=== PATIENT | female | born 1965 | race Two or more races ===

== ENCOUNTER 2024-06-26 09:26 | Day surgery (SDC) | payer MEDICAID ==
[2024-06-24 10:08] LABS: Basophils # (auto) 0 10 ^3/uL (0-0.2); Basophils % (auto) 0.7 % (0.0-2.0); Eosinophils # (auto) 0.1 10 ^3/uL (0-0.8); Hematocrit 41.5 % (36.0-46.0); Lymphocytes # (auto) 1.7 10 ^3/uL (0.4-5.4); Lymphocytes % (auto) 43.1 % (10.0-50.0); Mean Corpuscular Hemoglobin 32.2 pg (28.0-32.0); Mean Corpuscular Hgb Conc. 33.8 g/dL (32.0-36.0); Mean Corpuscular Volume 95.4 fL (80.0-100.0); Monocytes # (auto) 0.3 10 ^3/uL (0-1.3); Monocytes % (auto) 7.6 % (0.0-12.0); Neutrophils # (auto) 1.9 10 ^3/uL (1.6-8.6); Neutrophils % (auto) 46.6 % (37.0-80.0); Platelet Count (auto) 246 10^3/uL (140-450); Red Blood Cells 4.35 10^6/uL (4.0-5.20); Red Cell Distribution Width 13.7 % (11.8-14.3)
[2024-06-24 10:20] LABS: INR 1.04 (0.9-1.15); Partial Thromboplastin Time 26.6 SEC (24.5-34.5)
[2024-06-24 10:37] LABS: Alanine Aminotransferase 24 U/L (7-40); Alkaline Phosphatase 80 U/L (46-116); Anion Gap 8 (5-15); Aspartate Aminotransferase 23 U/L (13-40); Bilirubin, Total 0.5 mg/dL (0.2-1.0); Blood Urea Nitrogen 13 mg/dL (9-23); Calcium 9.9 mg/dL (8.7-10.4); Carbon Dioxide 27 mmol/L (20-31); Chloride 106 mmol/L (98-107); Glucose 79 mg/dL (74-106); Potassium 4.4 mmol/L (3.5-5.1); Sodium 141 mmol/L (136-145); Total Protein 7.4 g/dL (5.7-8.2)
[2024-06-24 10:58] LABS: Albumin 4.9 g/dL (3.2-4.8)
[~2024-06-26] VITALS: Ht 157.5 cm; Wt 71.2 kg
[2024-06-26] MEDS ORDERED: SODIUM CHLORIDE LOCK 10 ML ONE (10:55)
[2024-06-26 11:05] VITALS: PULSE 59; RESP 16; O2SAT 100
[2024-06-26] MEDS: fentaNYL CITRATE 100 MCG/2 ML VL ONE (11:06)
[2024-06-26] MEDS: MIDAZOLAM HCL 5 MG/ML-1ML VIAL ONE (11:06)
[2024-06-26 11:24] VITALS: TEMP 97.8
--- NOTE | 2024-06-26 11:28 | DVHNC2 ---
Procedure - DATE OF PROCEDURE: June 26, 2024 SURGEON: YASH GILMORE MD REFERRING PROVIDER: Dr. Genevieve CORDOVA PROCEDURE PERFORMED: 1. Colonoscopy with cold biopsy with moderate sedation PRE-PROCEDURE DIAGNOSIS: 1. Abdominal pain and diarrhea POSTPROCEDURE DIAGNOSIS: 1. Small internal external hemorrhoids otherwise normal colonoscopy INDICATIONS FOR PROCEDURE: The patient is a 59-year-old female with abdominal pain and diarrhea persists for a pressure colonoscopy MEDICATIONS USED: 4 mg Versed IV and 75 mcg of fentanyl IV DETAILS OF THE PROCEDURE: Informed consent was obtained after risks, benefits, and alternatives, were discussed at length with the patient. The patient gave consent to the procedure as well as the medication used for sedation. The pat ient was placed in the left lateral decubitus position. Digital rectal exam showed internal hemorrhoids. An Olympus variable torsion pediatric colonoscope was inserted into the rectum and advanced to the cecum. The cecum was identified by the ileocecal valve and the appendiceal orifice. The terminal ileum was intubated and normal in appearance. Cold biopsies were taken given t he patient's symptoms. The scope was then withdrawn. The prep was good with little amounts of liquid stool. There were no large polyps, masses, strictures, or arteriovenous malformations. Random cold biopsies were taken to rule out microscopic colitis. More than 7 minutes withdrawal time was noted. Retroflexion showed internal hemorrhoids. The patient tolerated the procedure well [place] BOWEL PREP SCORE: 9 COLONOSCOPY START TIME: 1109 CECUM TIME: 1111 COLONOSCOPY END TIME: 1118 IMPRESSION: 1. Normal colon and ileum, cold biopsies taken to rule out ileitis as well microscopic colitis. 2. Small internal external hemorrhoids RECOMMENDATIONS: 1. Follow up with procedure results 2. Repeat colonoscopy in 7-10 years unless otherwise indicated 3. High-fiber diet 4. Consider IBS, exocrine pancreatic insufficiency, versus other is cause of the patient's symptoms 5. Follow up in GI clinic I WOULD LIKE TO THANK DR. ROMO FOR THIS REFERRAL YASH GILMORE MD Jun 26, 2024 11:28
[2024-06-26 11:50] VITALS: BP 109/62; PULSE 51; RESP 14; O2SAT 96
== END 2024-06-26 12:15 | disposition home or self-care (01) ==
LOC: GI 09:26
PROVIDERS: ATTEND Specialist
DX: R19.7 Diarrhea, unspecified (principal); K64.8 Other hemorrhoids; K58.2 Mixed irritable bowel syndrome; K64.4 Residual hemorrhoidal skin tags; R74.01 Elevation of levels of liver transaminase levels; R63.4 Abnormal weight loss; Z90.710 Acquired absence of both cervix and uterus; Z90.49 Acquired absence of other specified parts of digestive tract; R10.13 Epigastric pain; Z68.29 Body mass index [BMI] 29.0-29.9, adult
CPT/HCPCS: 36415; 45380; 80053; 85025; 85610; 85730; 88305; J2250; J3010; 99152

== ENCOUNTER 2024-10-02 07:18 | Day surgery (SDC) | payer MEDICAID ==
[2024-09-30 15:20] LABS: Basophils # (auto) 0 10 ^3/uL (0-0.2); Eosinophils # (auto) 0.1 10 ^3/uL (0-0.8); Hematocrit 39.4 % (36.0-46.0); Hemoglobin 13.6 g/dL (12.2-16.2); Lymphocytes # (auto) 2.3 10 ^3/uL (0.4-5.4); Lymphocytes % (auto) 44.7 % (10.0-50.0); Mean Corpuscular Hemoglobin 32.9 pg (28.0-32.0); Mean Corpuscular Hgb Conc. 34.5 g/dL (32.0-36.0); Mean Corpuscular Volume 95.6 fL (80.0-100.0); Monocytes # (auto) 0.3 10 ^3/uL (0-1.3); Monocytes % (auto) 5.1 % (0.0-12.0); Neutrophils # (auto) 2.4 10 ^3/uL (1.6-8.6); Neutrophils % (auto) 47.2 % (37.0-80.0); Platelet Count (auto) 256 10^3/uL (140-450); Red Blood Cells 4.12 10^6/uL (4.0-5.20); Red Cell Distribution Width 13.9 % (11.8-14.3); White Blood Cell 5.1 10^3/uL (4.4-10.8)
[2024-09-30 15:38] LABS: INR 1.01 (0.9-1.15); Partial Thromboplastin Time 25.3 SEC (24.5-34.5); Prothrombin Time 10.7 sec (9.3-11.8)
[2024-09-30 15:41] LABS: Alanine Aminotransferase 21 U/L (7-40); Albumin 4.6 g/dL (3.2-4.8); Alkaline Phosphatase 72 U/L (46-116); Anion Gap 7 (5-15); Aspartate Aminotransferase 20 U/L (13-40); BUN/Creatinine Ratio 17.1 (10.0-20.0); Blood Urea Nitrogen 14 mg/dL (9-23); Carbon Dioxide 28 mmol/L (20-31); Chloride 106 mmol/L (98-107); Glucose 91 mg/dL (74-106); Sodium 141 mmol/L (136-145); Total Protein 7.1 g/dL (5.7-8.2)
[2024-09-30 15:42] LABS: Bilirubin, Total 0.3 mg/dL (0.2-1.0)
[~2024-10-02] VITALS: Ht 160 cm; Wt 69.9 kg
[~2024-10-02 07:18] MED LIST: OMEP20TA PO
[2024-10-02] MEDS: MIDAZOLAM HCL 2MG/2ML 2ml VIAL (1mg/ml) ONE (09:03)
[2024-10-02] MEDS: fentaNYL CITRATE 100 MCG/2 ML VL ONE (09:03)
--- NOTE | 2024-10-02 09:12 | DVHNC2 ---
Procedure - PROCEDURE DATE: 10/02/2024 PROCEDURE PERFORMED BY: AYSH GILMORE MD REFERRING PROVIDER: JANIE ROMO MD PROCEDURE PERFORMED: 1. ESOPHAGOGASTRODUODENOSCOPY WITH MODERATE SEDATION 2. ESOPHAGOGASTRODUODENOSCOPY WITH BIOPSY PRE-PROCEDURE DIAGNOSIS: 1. GERD REFRACTORY TO TREATMENT 2. EPIGASTRIC ABDOMINAL PAIN POSTPROCEDURE DIAGNOSIS: 1. MILD EROSIVE ESOPHAGITIS 2. MILD EROSIVE GASTRITIS INDICATION FOR PROCEDURE: THE PATIENT IS A 59-YEAR-OLD FEMALE WHO PRESENTS FOR OUTPATIENT ENDOSCOPY FOR ABDOMINAL PAIN AND GERD REFRACTORY TO TREATMENT MEDICATIONS USED: 4MG OF VERSED AND 50 MCG OF FENTANYL IV WAS GIVEN IN INCREMENTAL DOSES DETAILS OF THE PROCEDURE: INFORMED CONSENT WAS OBTAINED AFTER RISKS BENEFITS AND ALTERNATIVES WERE DISCUSSED AT LENGTH WITH THE PATIENT. THE PATIENT GAVE CONSENT TO THE PROCEDURE WELL THE MEDICATION USED FOR SEDATION. THE PATIENT WAS PLACED IN THE LEFT LATERAL DECUBITUS POSITION. AN OLYMPUS ENDOSCOPE WAS INSERTED INTO THE OROPHARYNX AND ADVANCED INTO THE ESOPHAGUS THEN INTO THE STOMACH THEN INTO THE DUODENAL BULB AND DUODENUM. THE DUODENAL BULB AND DUODENUM WERE NORMAL. THE SCOPE WAS THEN WITHDRAWN. THE STOMACH SHOWED MILD EROSIVE GASTRITIS IN THE BODY AND ANTRUM. BIOPSIES WERE TAKEN FOR H PYLORI AND PATHOLOGY. RETROFLEXION SHOWED NO ABNORMALITIES. RETAINED SECRETIONS WERE WASHED AND SUCTIONED OFF. THE SCOPE WAS THEN WITHDRAWN. THE Z-LINE WAS AT 36 CM. THE PATIENT HAD MILD EROSIVE ESOPHAGITIS. THE PATIENT TOLERATED THE PROCEDURE WELL. IMPRESSION: 1. MILD GASTRITIS AND MILD EROSIVE GASTRITIS ON TODAY'S ENDOSCOPY THE PATIENT'S SYMPTOMS OF ABDOMINAL PAIN 2. PATIENT'S PAIN MAY BE NONULCER DYSPEPSIA VERSUS IBS VERSUS SIBO VERSUS OTHER SUCH MUSCULOSKELETAL CAUSES RECOMMENDATIONS: 1. ANTI-REFLUX PRECAUTIONS, AVOID SPICY FOOD, CAFFEINE, CHOCOLATE, TOMATOES, CITRUS, AND ALCOHOL 2. CONTINUE WITH THE PROTON PUMP INHIBITOR DAILY 3. CONSIDER ADDING H2 DELMA 4. CONSIDER FURTHER WORKUP FOR THE PATIENT'S SYMPTOMS IF THEY PERSIST OR WORSEN I WOULD LIKE TO THANK DR. ROMO FOR THIS REFERRAL YASH GILMORE MD October 02, 2024 09:12
[2024-10-02 09:17] VITALS: TEMP 97.2
[2024-10-02 09:40] VITALS: BP 105/73; PULSE 52; RESP 16; O2SAT 96
== END 2024-10-02 09:55 | disposition home or self-care (01) ==
LOC: GI 07:18
PROVIDERS: ATTEND Specialist
DX: K21.00 Gastro-esophageal reflux disease with esophagitis, without bleeding (principal); R10.13 Epigastric pain; K29.50 Unspecified chronic gastritis without bleeding; F32.A Depression, unspecified; F41.9 Anxiety disorder, unspecified; Z90.710 Acquired absence of both cervix and uterus; Z90.49 Acquired absence of other specified parts of digestive tract; Z86.19 Personal history of other infectious and parasitic diseases; Z87.891 Personal history of nicotine dependence; Z98.890 Other specified postprocedural states; Z82.49 Family history of ischemic heart disease and other diseases of the circulatory system; Z83.3 Family history of diabetes mellitus
CPT/HCPCS: 36415; 43239; 80053; 85025; 85610; 85730; 88305; 88312; 88342; J2250; J3010

== ENCOUNTER 2025-04-14 07:11 | Emergency (ER) | payer MEDICAID ==
[~2025-04-14] VITALS: Ht 160 cm; Wt 75.1 kg
--- NOTE | 2025-04-14 07:49 | ED.PDOC ---
Eye-HPI HPI Comments A 60 YEAR OLD FEMALE PRESENTS TO THE ED WITH COMPLAINT OF SORE THROAT AND LEFT EAR PAIN. PATIENT STATES SHE HAS BEEN EXPERIENCING A SORE THROAT THAT IS WORSE WHEN SWALLOWING AND LEFT EAR PAIN FOR THE PAST 4 DAYS. PATIENT DENIES FEVER, CHILLS, SHORTNESS OF BREATH, CHEST PAIN, ABDOMINAL PAIN, NAUSEA, VOMITING, HEADACHE, OR OTHER COMPLAINTS. NO OTHER SYMPTOMS OR MODIFYING FACTORS AT THIS TIME. PATIENT IS ALERT, ORIENTED X 4, AND HAS STEADY GAIT. Chief Complaint: Sore Throat Time Seen by MD: 07:30 Primary Care Provider: ERIKA Evans Notes: Nurses Notes, Medications, Allergies Allergies: Coded Allergies: NO KNOWN ALLERGIES (Unverified , 01/23/24) Home Meds Reported Medications Omeprazole (Gnp Omeprazole) 20 Mg Tab, 20 MG PO DAILY, TAB 09/30/24 Information Source: Patient Mode of Arrival: Ambulatory Timing: Days Duration: Days Prehospital treatment: None Quality: Pain, Red Lids: Normal Conjunctiva: Normal Cornea: Normal Pupils: Normal EOM: Normal Fundus: Normal Slit lamp exam: Normal Anterior chamber: Normal Mouth Location: Pharynx Mouth: Normal ENT Ear Exam: Swelling, Red, Bulging, Dull, Normal Nose: Normal Sinuses: Normal Oropharynx: Tonsillar hypertrophy, Red Onset: Spontaneous Throat Exposed to: None History of: None Last Tetanus: Unknown Modifying factors: Nothing Associated signs and symptoms: Sore Throat, Ear Pain, Hoarse Past Medical History PAST MEDICAL HISTORY: Denies Surgical History: Denies all surgeries BENCH HAND History: No Pertinent BENCH HAND History Family History Family History: Reviewed,noncontributory to illness, No family hx of Cancer, No family hx of DM, No family hx of Heart ch[place], No family hx of HTN, No family hx ofKidney chico, No family hx of Liver ch[place], No family hx of Lung chico, No family hx of Stroke Social History Smoker: Non-Smoker Alcohol: Denies ETOH Use Drugs: Denies Drug Use Lives In: Home Constitutional: denies: chills, diaphoresis, fatigue, fever, malaise, sweats, weakness, others EENTM: reports: ear pain, ear ringing, throat pain, throat swelling; denies: blurred vision, double vision, ear bleeding, ear discharge, ear drainage, eye pain, eye redness, hearing loss, mouth pain, mouth swelling, nasal discharge, nose bleeding, nose congestion, nose pain, photophobia, tearing, voice changes, others Respiratory: denies: cough, hemoptysis, orthopnea, SOB at rest, shortness of breath, SOB with excertion, stridor, wheezing, others Cardiovascular: denies: chest pain, dizzy spells, diaphoresis, Dyspnea on exertion, edema, irregular heart beat, left arm pain, lightheadedness, palpitations, PND, syncope, others Gastrointestinal: denies: abdomen distended, abdominal pain, blood streaked bowels, constipated, diarrhea, dysphagia, difficulty swallowing, hematemesis, melena, nausea, poor appetite, poor fluid intake, rectal bleeding, rectal pain, vomiting, others Genitourinary: denies: abnormal vagina bleeding, burning, dyspareunia, dysuria, flank pain, frequency, hematuria, incontinence, pain, , vagina discharge, urgency, others Neurological: denies: dizziness, fainting, headache, left sided numbness, left sided weakness, numbness, paresthesia, pre-existing deficit, right sided numbness, right sided weakness, seizure, speech problems, tingling, tremors, weakness, others Musculoskeletal: denies: back pain, gout, joint pain, joint swelling, muscle pain, muscle stiffness, neck pain, others Integumetry: denies: bruises, change in color, change in hair/nails, dryness, laceration, lesions, lumps, rash, wounds, others Allergic/Immunocompromised: denies: Difficulty Healing, Frequent Infections, Hives, Itching, others Hematologic/Lymphatic: denies: anemia, blood clots, easy bleeding, easy bruising, swollen glands, others Endocrine: denies: excessive hunger, excessive sweating, excessive thirst, excessive urination, flushing, intolerance to cold, intolerance to heat, unexplained weight gain, unexplained weight loss, others Psychiatric: denies: anxiety, bipolar disorder, depression, hopeless, panic disorder, schizophrenia, sleepless, suicidal, others All Other Systems: Reviewed and Negative Physical Exam General Appearance: No Apparent Distress, Normal HEENT: PERRL/EOMI, Pharyngeal Erythema (TONSILLAR SWELLING, NO EXUDATES. ), TM Abnormal (L) (ERYTHEMA AND DULL OF LEFT TM, NO BLEEDING AND BLOOD CLOTS. ) Neck: Full Range of Motion, Non-Tender, Normal, Normal Inspection Respiratory: Chest Non-Tender, Lungs Clear, No Accessory Muscle Use, No Respiratory Distress, Normal Breath Sounds Cardiovascular: No Edema, No JVD, No Murmur, No Gallop, Normal Peripheral Pulses, Regular Rate/Rhythm Breast Exam: Deferred Gastrointestinal: No Organomegaly, Non Tender, No Pulsatile Mass, Normal Bowel Sounds, Soft Genitalia: Deferred Pelvic: Deferred Rectal: Deferred Extremities: No calf tenderness, Normal capillary refill, Normal inspection, Normal range of motion, Non-tender, No pedal edema Musculoskeletal : Apperance: Normal Neurologic: Alert, machine staker II-XII nml as Tested, No Motor Deficits, Normal Affect, Normal Mood, No Sensory Deficits Cerebellar Function: Normal Reflexes: Normal Skin: Dry, Normal Color, Warm Peripheral Pulses: 2+ carotid (R), 2+ carotid (L) Lymphatic: No Adenopathy Was a procedure done? Was a procedure done?: No EENT DIFF Eye: N/A Ear: Cerumen Impaction, Otitis Externa, Otitis Media, Pharyngitis, Sinusitis Nose: N/A Mouth: N/A Sore Throat: Pharyngitis, Streptococcal, Viral Pharyngitis, URI X-Ray, Labs, Meds, VS Vital Signs Date Time Temp Pulse Resp B/P (MAP) Pulse Ox O2 Delivery O2 Flow Rate FiO2 04/14/25 07:52 98.7 68 18 115/82 (93) 99 98.7 04/14/25 07:20 98.0 73 16 117/77 94 98.0 Current Medications Medications (Trade) Dose Ordered Sig/Beverly Route Start Time Stop Time Status Last Admin Ceftriaxone Sodium (Rocephin) 1,000 mg ONCE ONCE IM 04/14/25 07:45 04/14/25 07:46 DC 04/14/25 07:54 X-Ray, Labs, Meds, VS Comment EXTERNAL MEDICAL RECORDS REVIEWED: [NONE] INDEPENDENT HISTORIANS: [NONE] SOCIAL DETERMINANTS OF HEALTH: [NONE] LABS ORDERED: NONE REVIEWED AND INTERPRETED RESULTS: NONE IMAGING ORDERED: NONE TREATMENTS ORDERED: ROCEPHIN 1G IM PROCEDURES PERFORMED: NONE CRITICAL CARE TIME: NONE I HAVE DISCUSSED THE PATIENT WITH THE ATTENDING PHYSICIAN DR. CALDERON AND HE AGREES WITH THE PATIENT'S PLAN OF CARE AND DISPOSITION. BASED ON HISTORY OF PRESENT ILLNESS, AND PHYSICAL EXAM, PATIENT WILL BE DISCHARGED HOME. DISCUSSED PLAN FOR DISCHARGE HOME WITH RX [AUGMENTIN AND IBUPROFEN 600 MG]. MEDICATION WARNINGS GIVEN. SHARED DECISION MAKING: PATIENT INSTRUCTED TO FOLLOW UP WITH PRIMARY CARE PROVI DANIEL IN 1-2 DAYS FOR RE-EVALUATION OF SYMPTOMS. PATIENT VERBALIZES UNDERSTANDING TO RETURN TO ED FOR NEW OR WORSENING SYMPTOMS OR IF FOLLOW UP WITH PCP CANNOT BE OBTAINED. PATIENT FEELS COMFORTABLE GOING HOME AT THIS TIME. ALL QUESTIONS ADDRESSED AT TIME OF DISCHARGE. Time of 1ST Reevaluation: 08:30 Reevaluation 1ST: Improved Patient Education/Counseling: Diagnosis, Treatment, Need For Follow Up Family Education/Counseling: Diagnosis, Treatment, Need For Follow Up Medical Screening: No EMC Exist At This Time SEPSIS Sepsis Screen Date sepsis recognized/suspect: Apr 14, 2025 Time Sepsis recognized/suspect: 721 Recent Procedure: No On Antibiotic Therapy: No Respiratory Rate >20: No Heart Rate >90: No Temp<36 C (96.8 F) or >38.3 C: No SBP <90 or MAP <65 mmHG: No New Acute Mental Status Change: No Is the patient on CPAP, BIPAP,: No Vital Signs Date Time Temp Pulse Resp B/P (MAP) Pulse Ox O2 Delivery O2 Flow Rate FiO2 04/14/25 07:52 98.7 68 18 115/82 (93) 99 98.7 04/14/25 07:20 98.0 73 16 117/77 94 98.0 Medications Medications Dose Ordered Sig/Beverly Route Start Time Stop Time Status Last Admin Dose Admin Ceftriaxone Sodium 1,000 mg ONCE ONCE IM 04/14/25 07:45 04/14/25 07:46 DC 04/14/25 07:54 Departure 1 Departure Time of Disposition: 08:30 Impression: Primary Impression: Acute tonsillitis Qualified Codes: J03.90 - Acute tonsillitis, unspecified Additional Impression: Otitis media of left ear Qualified Codes: H65.02 - Acute serous otitis media, left ear Disposition: 01 HOME / SELF CARE / HOMELESS Condition: Stable Additional Instructions: FOLLOW-UP WITH PCP IN 1 TO 2 DAYS. TAKE MEDICATIONS PRESCRIBED. RETURN TO ED FOR ANY NEW OR WORSENING SYMPTOMS. e-Prescriptions Ibuprofen (Ibuprofen) 600 Mg Tab 1 TAB PO TID, #30 TAB Prov: SHABBIR HERNANDEZ 04/14/25 Amoxicillin & Pot Clavulanate (AUGMENTIN TABLET) 875 Mg Tb 875 MG PO BID for 10 Days, #20 TAB Prov: SHABBIR HERNANDEZ 04/14/25 Discharged With: Self Critical Care Note Critical Care Time?: No Stability Stability form required: No I personally scribed for SHABBIR HERNANDEZ ([email or web address]) on 04/14/25 at 07:49. Electronically submitted by Sridhar Ramsey ([email or web address]). SHABBIR HERNANDEZ Apr 14, 2025 07:49
[2025-04-14 07:52] VITALS: BP 115/82; PULSE 68; RESP 18; TEMP 98.7; O2SAT 99
[2025-04-14] MEDS: cefTRIAXone SOD 1,000 MG VL IM ONE (07:54)
[2025-04-14] MEDS ORDERED: AUG875T PO (08:19)
[2025-04-14] MEDS ORDERED: IBUP-1454 PO (08:19)
== END 2025-04-14 08:24 | disposition home or self-care (01) ==
LOC: ER 07:11
DX: J03.90 Acute tonsillitis, unspecified (principal); H66.92 Otitis media, unspecified, left ear; Z79.899 Other long term (current) drug therapy
CPT/HCPCS: 96372; 99283; J0696